=== PATIENT | female | born 2000 | race Caucasian/White ===

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

== ENCOUNTER → 2020-10-29 | Outpatient (CLI) | payer MEDICAID ==
[2020-10-30 19:28] LABS: Prolactin 8.3 ng/mL (2.8-29.2)
[2020-10-30 19:29] LABS: Follicle Stimulating Hormone 5.6 mIU/mL
[2020-10-30 20:16] LABS: HCG,Quantitative Serum <2.0 mIU/mL
== END | disposition home or self-care (01) ==
LOC: LABWHC1 15:08
PROVIDERS: ATTEND Obstetrics & Gynecology
DX: N91.5 Oligomenorrhea, unspecified (principal)
CPT/HCPCS: 36415; 83001; 84146; 84443; 84702